=== PATIENT | female | born 1975 | race Caucasian/White ===

== ENCOUNTER 2017-01-10 05:50 | Inpatient (IN) | payer MEDICAID ==
[~2017-01-10] VITALS: Ht 152.4 cm; Wt 75.7 kg
[2017-01-10] VITALS (7 sets, daily range): BP systolic 120–131; BP diastolic 60–71; PULSE 61–90; RESP 18; Ht 152.4 cm; Wt 75.7 kg
[2017-01-10 06:22] LABS: ADD SCAN DIFF NO
[2017-01-10 06:25] LABS: ABNORMAL IP MESSAGE 1; BASOPHILS % 0.4 % (0.0-2.0); EOSINOPHILS # 0.1 10^3/ul (0.0-0.5); EOSINOPHILS % 1.4 % (0.0-7.0); HEMATOCRIT 33.9 % (37.0-47.0); HEMOGLOBIN 10.1 g/dl (12.0-16.0); LYMPHOCYTES # 1.5 10^3/ul (0.8-2.9); LYMPHOCYTES % 28.3 % (15.0-51.0); MEAN CORPUSCULAR HEMOGLOBIN 21.9 pg (29.0-33.0); MEAN CORPUSCULAR HGB CONC 29.8 g/dl (32.0-37.0); MEAN CORPUSCULAR VOLUME 73.4 fl (82.0-101.0); MONOCYTE # 0.4 10^3/ul (0.3-0.9); NEUTROPHIL # 3.2 10^3/ul (1.6-7.5); NEUTROPHILS % 61.9 % (39.0-77.0); PLATELET COUNT 107 10^3/UL (140-415); RED BLOOD COUNT 4.62 10^6/ul (4.20-5.40); RED CELL DISTRIBUTION WIDTH 16.7 % (11.5-14.5); WHITE BLOOD COUNT 5.2 10^3/ul (4.8-10.8)
[2017-01-10] MEDS ORDERED: LACTATED RINGER'S 1,000 ML IV SCH (06:30)
[2017-01-10] MEDS ORDERED: MISOPROSTOL 200 MCG TAB PR PRN ×2 (06:30→09:00)
[2017-01-10] MEDS ORDERED: CARBOPROST 250 MCG INJ IM PRN ×2 (06:30→09:00)
[2017-01-10] MEDS ORDERED: METHYLERGONOVINE 0.2 MG INJ IM PRN ×2 (06:30→09:00)
[2017-01-10] MEDS ORDERED: OXYTOCIN 30 UNITS/LR 500 ML IV PRN ×2 (06:30→09:00)
[2017-01-10] MEDS ORDERED: CEFAZOLIN 2 GM/50 ML (PMX) 50 ML IV SCH (06:30)
[2017-01-10 06:50] LABS: INR 0.88; PROTIME 11.9 Sec (12.2-14.2); PT RATIO 0.9
[2017-01-10 06:51] LABS: PARTIAL THROMBOPLASTIN TIME 26.7 Sec (25.0-35.0)
[2017-01-10] MEDS ORDERED: LACTATED RINGER'S 1,000 ML IV ONE (07:03)
--- NOTE | 2017-01-10 07:21 | HP ---
Date/Time of Note Date/Time of Note DATE: 01/10/17 TIME: 07:14 OB - History Hx of Present Chief Complaint: elective repeat CD with Btl 3 previous cd with history of blood transfusion Estimated Due Date: Jan 17, 2017 : 4 Para: 3 Care: Good Care Ultrasounds: Normal mid trimester US Other Concerns: anemai Past Family/Social History * Past Medical, Surgical, Family and Obstetric Histories reviewed from chart. Rubella: immune GBS Status: Unknown HBsAG: Negative OB Admission Exam Vital Signs Vital Signs Vital Signs Date Time Temp Pulse Resp B/P Pulse Ox O2 Delivery O2 Flow Rate FiO2 01/10/17 06:25 98.6 90 131/71 Room Air Physical Exam HEENT: WNL Heart: Rhythm Normal Lungs: Clear Abdomen: WNL Extremities: Normal Reflexes: Normal Cervical Dilatation: None Heart Rate: 130's Accelerations: Accelerations Present Contractions on Admission: None Last 72 hours Lab Results CBC & BMP 01/10/17 06:10 OB Assessment/Plan Reason for admission: section Plan: Section RADHA ROLON MD Jan 10, 2017 07:20
[2017-01-10] MEDS ORDERED: FAMOTIDINE 20 MG INJ IV ONE (07:30)
[2017-01-10] MEDS ORDERED: METOCLOPRAMIDE 10 MG INJ IV ONE (07:30)
[2017-01-10] MEDS ORDERED: CITRIC ACID/SODIUM CITRATE 15 ML CUP PO ONE (07:30)
[2017-01-10] MEDS ORDERED: morphine SULFATE/PF (10 MG/10 ML) INJ ONE (07:35)
[2017-01-10] MEDS ORDERED: FENTAnyl 50 MCG/ML VIAL ONE (07:35)
[2017-01-10] MEDS ORDERED: ONDANSETRON 4 MG INJ ONE (08:18)
[2017-01-10] MEDS ORDERED: FENTAnyl 50 MCG/ML VIAL IV PRN (08:30)
[2017-01-10] MEDS ORDERED: DIPHENHYDRAMINE 50 MG INJ IV PRN ×2 (08:30→09:30)
[2017-01-10] MEDS ORDERED: KETOROLAC 30 MG INJ IV PRN ×2 (08:30→09:30)
[2017-01-10] MEDS ORDERED: HYDROmorphONE (0.2 MG/ML) 10ML SYG IV PRN (08:30)
[2017-01-10] MEDS ORDERED: ONDANSETRON 4 MG INJ IV PRN ×2 (08:30→09:30)
[2017-01-10] MEDS ORDERED: PROCHLORPERAZINE 10 MG INJ IV PRN ×2 (08:30→09:30)
[2017-01-10] MEDS ORDERED: MEPERIDINE 25 MG INJ IV PRN (08:30)
[2017-01-10] MEDS ORDERED: OXYTOCIN 30 UNITS/LR 500 ML IV ONE (08:35)
[2017-01-10] MEDS ORDERED: OXYCODONE/ACETAMINOPHEN (5/325) TAB PO PRN ×2 (09:00)
[2017-01-10] MEDS ORDERED: LANOLIN 7 GM TUBE TOP PRN (09:00)
[2017-01-10] MEDS ORDERED: HYDROmorphONE 1 MG/ML SYG IV PRN ×2 (09:30)
[2017-01-10] MEDS ORDERED: NALOXONE (0.4 MG/ML) INJ IV PRN (09:30)
[2017-01-10] MEDS ORDERED: ZOLPIDEM 5 MG TAB PO PRN (09:30)
--- NOTE | 2017-01-10 10:58 | OPR ---
Operative Report Planned Procedure Free Text/Dictation DATE OF OPERATION: 01/10/2017 PREOPERATIVE DIAGNOSIS: Intrauterine at 39 weeks gestational age, previous delivery x3, multiparous, desires elective repeat delivery with bilateral tubal sterilization. POSTOPERATIVE DIAGNOSIS: Intrauterine at 39 weeks gestational age, previous delivery x3, multiparous, desires elective repeat delivery with bilateral tubal sterilization. OPERATION PERFORMED: Repeat low transverse delivery with bilateral tubal ligation, modified More method with omentectomy. SURGEON: Reinaldo Rolon MD. SALES PROGRAM MANAGER: Dr. Adames ANESTHESIA: Spinal. COMPLICATIONS OF PROCEDURE: None. ESTIMATED BLOOD LOSS: 500 mL. FINDINGS: A viable male, 8 and 9 respectively at 1 and 5 minutes. Weight 7lbs 1 oz . Pathology: portion of right and left fallopian tube. DESCRIPTION OF PROCEDURE: After explaining the risks, benefits and alternatives , the patient and consent signed in chart, the patient was taken to the operating room where spinal anesthesia was found to be adequate. She was then prepared and draped in normal sterile fashion in dorsal supine position with a leftward tilt. A Pfannenstiel skin incision was then made with a scalpel and carried to the underlying layer of fascia. The fascia was incised in the midline and incision was extended laterally with Potter scissors. The superior aspect of the fascial incision was grasped with curved clamps, elevated and the underlying rectus muscles dissected off bluntly. Attention was then turned to the inferior aspect of the incision, which in similar fashion was grasped, tented up with curved clamps and the rectus muscles dissected off bluntly. The rectus muscles were then in midline, peritoneum identified, tented up with Metzenbaum scissors. The peritoneal incision was extended superiorly, inferiorly with good visualization of bladder. . At this point, the bladder blade was then inserted and the vesicouterine peritoneum identified, grasped with pickups and entered sharply with Metzenbaum scissors. This incision was extended laterally and the bladder flap created digitally. The bladder blade was then reinserted and was incised in transverse fashion with a scalpel. The uterine incision was extended laterally. The bladder blade was removed and the infant's head delivered atraumatically. The nose and mouth were suctioned and cord clamped and cut. The was handed off to awaiting jewelry setter. The placenta was then removed. The uterus was exteriorized and cleared of all clots and debris. The uterine incision was repaired with 1-0 chromic in a running locked fashion. A second layer of same suture was used for imbrication obtaining excellent hemostasis. At this point, a Eva clamp was used to grasp the left tube approximately 4 cm from the cornual region. A 3 cm segment of tube was ligated with a free tie of plain gut and excised. Good hemostasis was noted. Similarly, the right fallopian tube was excised. The uterus was returned to the abdomen. The gutters were cleared of all clots. Good hemostasis was assured from the tubal ligation site. The peritoneum was reapproximated with 2-0 plain gut in interrupted fashion. The fascia was reapproximated with 0 Vicryl in a running fashion. The subcutaneous tissue was reapproximated with 2-0 plain gut in a running fashion. The skin was closed with xiomara. The patient tolerated procedure well. Sponge, lap and needle counts correct x2. The patient was taken to recovery room in stable condition. Procedure date Jan 10, 2017 Procedure Description Under satisfactory [] anesthesia, the patient was prepped and draped and placed in a supine position, tilted to the left. Pfannenstiel incision was made, carried through the subcutaneous tissue. Bleeders brought under control with electrocautery. Fascia incised to the length of the incision. Rectus muscles from the fascia, divided midline. Peritoneum exposed, entered through a transverse incision. Exploration of abdomen revealed gravid uterus. Bladder flap was developed. Transverse incision was made in the lower segment of the uterus. Amniotic sac ruptured. [] amniotic fluid noted. [] Nasal oropharyngeal suction was performed. The baby was handed to the team for immediate attention. The placenta was delivered manually intact. Uterine cavity was cleaned with wet sponge and drainage established. Uterus closed in 2 layers using [] in continuous fashion. Peritoneal cavity irrigated with warm saline. Sponge, needle and instrument count reported to be correct. Abdominal peritoneum closed with [] continuously. Rectus muscle approximated with []. Fascia closed with [], and skin closed with xiomara. Estimated blood loss []mL. Urine bag contained []mL of urine Post-Procedure Findings: Live Baby [], Apgars [] and [], weight [], position [], [] presentation []cord. Physician Certification I, the undersigned physician, hereby certify that I have discussed the procedure described in this consent form with this patient (or the patient's legal field support representative), including: * The risk and benefits of the procedure; * Any adverse reactions that may reasonably be expected to occur; * Any alternative efficacious methods of treatment which may be medically viable ; * The potential problems that may occur during recuperation; * Potential for blood transfusion and associated risks/benefits; and * Any research or economic interest I may have regarding this treatment. I further certify that the patient/legally responsible person was encouraged to ask question and that all questions were answered. REINALDO ROLON MD Jan 10, 2017 10:58
[2017-01-10] MEDS: OXYTOCIN 30 UNITS/LR 500 ML IV SCH ×2 (11:34→11:54)
[2017-01-10] MEDS: IBUPROFEN 600 MG TAB PO SCH ×3 (12:00→23:54)
[2017-01-10] MEDS: LACTATED RINGER'S 1,000 ML IV SCH ×2 (15:34→23:54)
[2017-01-10] MEDS: CEFAZOLIN 2 GM/50 ML (PMX) 50 ML IVPB SCH ×2 (17:42→17:47)
[2017-01-10] MEDS: SENNA/DOCUSATE NA (8.6MG/50MG) TAB PO SCH (23:53)
[2017-01-11] VITALS: BP 123/62; PULSE 75; RESP 19
[2017-01-11] MEDS: CEFAZOLIN 2 GM/50 ML (PMX) 50 ML IVPB SCH (00:59)
[2017-01-11 04:00] VITALS: BP 114/60; PULSE 79; RESP 18
[2017-01-11] MEDS: IBUPROFEN 600 MG TAB PO SCH ×4 (05:35→23:51)
[2017-01-11 07:40] VITALS: BP 113/59; PULSE 72; RESP 18
[2017-01-11] MEDS: LACTATED RINGER'S 1,000 ML IV SCH (07:58)
[2017-01-11 08:10] LABS: ABNORMAL IP MESSAGE 1; BASOPHILS % 0.2 % (0.0-2.0); EOSINOPHILS % 0.2 % (0.0-7.0); HEMATOCRIT 26.5 % (37.0-47.0); HEMOGLOBIN 7.9 g/dl (12.0-16.0); LYMPHOCYTES # 1.1 10^3/ul (0.8-2.9); MEAN CORPUSCULAR HEMOGLOBIN 21.8 pg (29.0-33.0); MEAN CORPUSCULAR HGB CONC 29.8 g/dl (32.0-37.0); MEAN CORPUSCULAR VOLUME 73.2 fl (82.0-101.0); MONOCYTE # 0.5 10^3/ul (0.3-0.9); MONOCYTES % 4.9 % (0.0-11.0); NEUTROPHIL # 7.5 10^3/ul (1.6-7.5); NEUTROPHILS % 81.8 % (39.0-77.0); PLATELET COUNT 91 10^3/UL (140-415); RED BLOOD COUNT 3.62 10^6/ul (4.20-5.40); RED CELL DISTRIBUTION WIDTH 16.5 % (11.5-14.5); WHITE BLOOD COUNT 9.2 10^3/ul (4.8-10.8)
[2017-01-11 08:15] LABS: ADD SCAN DIFF NO
[2017-01-11] MEDS: SENNA/DOCUSATE NA (8.6MG/50MG) TAB PO SCH ×2 (08:58→20:33)
--- NOTE | 2017-01-11 10:11 | PN ---
Date/Time of Note Date/Time of Note DATE: 01/11/17 TIME: 10:10 OB Subjective Subjective Subjective January 11, 2017 Hospital visit, day 2 Post day 2 Patient is doing well, Ambulatory She is afebrile Abdomen is soft , Fundus is firm Moderate amount of lochia Breasts are soft, Nipples are intact No calf tenderness. Incision is healing Laboratory Tests Test 01/11/17 07:11 White Blood Count 9.210^3/ul Red Blood Count 3.6210^6/ul Hemoglobin 7.9g/dl Hematocrit 26.5% Mean Corpuscular Volume 73.2fl Mean Corpuscular Hemoglobin 21.8pg Mean Corpuscular Hemoglobin Concent 29.8g/dl Red Cell Distribution Width 16.5% Platelet Count 9110^3/UL Mean Platelet Volume fl Neutrophils % 81.8% Lymphocytes % 12.0% Monocytes % 4.9% Eosinophils % 0.2% Basophils % 0.2% Nucleated Red Blood Cells % 0.0/100WBC Neutrophils # 7.510^3/ul Lymphocytes # 1.110^3/ul Monocytes # 0.510^3/ul Eosinophils # 0.010^3/ul Basophils # 0.010^3/ul Nucleated Red Blood Cells # 0.010^3/ul Current Medications Medications (Trade) Dose Ordered Sig/Wil Route PRN Reason Start Time Stop Time Status Last Admin Dose Admin Cefazolin Sodium/ Dextrose 50 ml @ 100 mls/hr ONCE IV 01/10/17 06:30 01/10/17 09:06 DC Oxytocin/Lactated Ringer's 500 ml @ 0 mls/hr ONCE PRN IV For Hemorrhage Management 01/10/17 06:30 01/10/17 12:54 DC 01/10/17 09:08 Methylergonovine Maleate (Methergine) 0.2 mg ONCE PRN IM VAGINAL BLEEDING 01/10/17 06:30 01/10/17 09:07 DC Carboprost Tromethamine (Hemabate) 250 mcg ONCE PRN IM VAGINAL BLEEDING 01/10/17 06:30 01/10/17 09:05 DC Misoprostol 1000 mcg 1,000 mcg ONCE PRN DC VAGINAL BLEEDING 01/10/17 06:30 01/10/17 09:07 DC Lactated Ringer's 1,000 ml @ 125 mls/hr Q8H IV 01/10/17 06:30 01/10/17 12:54 DC 01/10/17 06:22 Lactated Ringer's (Lr) 1,000 ml @ 1,000 mls/hr Q1H ONCE IV 01/10/17 07:03 01/10/17 08:02 DC 01/10/17 07:39 Citric Acid/ Sodium Citrate (Bicitra) 30 ml PRE-PROCEDURE ONCE PO 01/10/17 07:30 01/10/17 07:31 DC 01/10/17 07:37 Famotidine (Pepcid Iv) 20 mg pre-procedure ONCE IV 01/10/17 07:30 01/10/17 07:31 DC 01/10/17 07:37 Metoclopramide HCl 10 mg 10 mg ONCE ONCE IV 01/10/17 07:30 01/10/17 07:31 DC 01/10/17 07:38 Oxytocin/Lactated Ringer's 500 ml @ 125 mls/hr ONCE IV 01/10/17 07:30 01/10/17 12:54 DC 01/10/17 11:54 Fentanyl (Sublimaze) 100 mcg STK-MED ONCE .ROUTE 01/10/17 07:35 01/10/17 07:36 DC Morphine Sulfate (Duramorph) 10 mg STK-MED ONCE .ROUTE 01/10/17 07:35 01/10/17 07:36 DC Hydromorphone HCl (Dilaudid (Rec)) 0.4 mg PACU ORDER PRN IV PAIN 01/10/17 08:30 01/10/17 12:54 DC Fentanyl (Sublimaze) 25 mcg PACU ORDER PRN IV PAIN 01/10/17 08:30 01/10/17 12:54 DC Ketorolac Tromethamine (Toradol) 30 mg PACU ORDER PRN IV PAIN 01/10/17 08:30 01/10/17 12:55 DC Ondansetron HCl (Zofran Inj) 4 mg PACU ORDER PRN IV NAUSEA AND/OR VOMITING 01/10/17 08:30 01/10/17 12:55 DC Prochlorperazine (Compazine Inj) 5 mg PACU ORDER PRN IV NAUSEA AND/OR VOMITING 01/10/17 08:30 01/10/17 12:55 DC Meperidine HCl (Demerol) 25 mg PACU ORDER PRN IV POST-OP RIGORS 01/10/17 08:30 01/10/17 12:55 DC Diphenhydramine HCl (Benadryl) 25 mg PACU ORDER PRN IV PRURITUS 01/10/17 08:30 01/10/17 12:55 DC Ondansetron HCl 4 mg 4 mg STK-MED ONCE .ROUTE 01/10/17 08:18 01/10/17 08:19 DC Oxytocin/Lactated Ringer's 500 ml @ ud STK-MED ONCE IV 01/10/17 08:35 01/10/17 08:36 DC Lactated Ringer's 1,000 ml @ 125 mls/hr Q8H IV 01/10/17 08:46 01/11/17 07:58 DC 01/10/17 23:54 Cefazolin Sodium/ Dextrose (Ancef 2 Gm/50 ml (Pmx)) 50 ml @ 100 mls/hr Q8H IVPB 01/10/17 09:00 01/11/17 01:29 DC 01/11/17 00:59 Oxycodone/ Acetaminophen (Percocet (5/ 325)) 1 tab Q4H PRN PO PAIN LEVEL 4-6 01/10/17 09:00 Oxycodone/ Acetaminophen (Percocet (5/ 325)) 2 tab Q4H PRN PO PAIN LEVEL 7-10 01/10/17 09:00 Ibuprofen (Motrin) 600 mg Q6 PO 01/10/17 12:00 Simethicone (Mylicon) 160 mg Q8H PRN PO DISTENSION/GAS/BLOATING 01/10/17 09:00 Senna/Docusate Sodium (Senokot-S) 1 tab BID PO 01/10/17 09:00 01/11/17 08:58 Lanolin 1 applic 1 applic BEDSIDE MEDICATION PRN TOP BEDSIDE FOR SHANIA TO NIPPLES 01/10/17 09:00 Oxytocin/Lactated Ringer's 500 ml @ 0 mls/hr ONCE PRN IV For Hemorrhage Management 01/10/17 09:00 01/10/17 12:55 DC Methylergonovine Maleate (Methergine) 0.2 mg ONCE PRN IM VAGINAL BLEEDING 01/10/17 09:00 Carboprost Tromethamine (Hemabate) 250 mcg ONCE PRN IM VAGINAL BLEEDING 01/10/17 09:00 01/10/17 12:55 DC Misoprostol (Cytotec) 1,000 mcg ONCE PRN DC VAGINAL BLEEDING 01/10/17 09:00 Naloxone HCl (Narcan) 0.1 mg Q2M PRN IV FOR RESP RATE 8 OR LESS 01/10/17 09:30 01/11/17 08:00 DC Ketorolac Tromethamine (Toradol) 30 mg Q6H PRN IV PAIN 01/10/17 09:30 01/11/17 08:00 DC 01/11/17 05:43 Hydromorphone HCl (Dilaudid) 0.2 mg Q3H PRN IV PAIN LEVEL 1-5 01/10/17 09:30 01/11/17 08:00 DC Hydromorphone HCl (Dilaudid) 0.4 mg Q3H PRN IV PAIN LEVEL 6-10 01/10/17 09:30 01/11/17 08:00 DC Diphenhydramine HCl (Benadryl) 25 mg Q6H PRN IV ITCHING 01/10/17 09:30 01/11/17 08:00 DC Ondansetron HCl (Zofran Inj) 4 mg Q6H PRN IV NAUSEA AND/OR VOMITING 01/10/17 09:30 01/11/17 08:00 DC Prochlorperazine (Compazine Inj) 10 mg ONCE PRN IV NAUSEA AND/OR VOMITING 01/10/17 09:30 01/11/17 08:00 DC Zolpidem Tartrate (Ambien) 5 mg HS MAY REPEAT X 1 PRN PO INSOMNIA 01/10/17 09:30 01/11/17 08:00 DC Miscellaneous Information (* Miscellaneous Pharmacy Order) Duramorph: 0.2 mg Spi... GIVEN XX 01/10/17 09:30 01/10/17 12:55 DC Breast feeding the new born. PETER DOMINIQUE MD Jan 11, 2017 10:11
[2017-01-11 16:00] VITALS: BP 115/64; PULSE 67; RESP 16
[2017-01-11 20:30] VITALS: BP 122/73; PULSE 80; RESP 20
[2017-01-11 23:45] VITALS: BP 132/72; PULSE 65; RESP 19
[2017-01-12 04:15] VITALS: BP 134/66; PULSE 69; RESP 20
[2017-01-12] MEDS: IBUPROFEN 600 MG TAB PO SCH ×3 (05:38→18:14)
[2017-01-12 08:20] VITALS: BP 117/59; PULSE 64; RESP 17
[2017-01-12] MEDS: SENNA/DOCUSATE NA (8.6MG/50MG) TAB PO SCH ×2 (09:22→21:00)
--- NOTE | 2017-01-12 14:03 | QN ---
Documentation Comment POD#2 is stable afebrile tolerates diet No VB +Flatus +voids VS stable Gen NAD Abd soft NT ND incsion intact Genitalia No blood at perinium --->discharge plan tomorrow --->ambulation LITO ESCOTO M.D. Jan 12, 2017 14:02
[2017-01-12 16:15] VITALS: BP 132/71; PULSE 85; RESP 16
[2017-01-12 19:48] VITALS: BP 128/70; PULSE 77; RESP 20
[2017-01-13] MEDS: IBUPROFEN 600 MG TAB PO SCH ×3 (00:25→12:39)
[2017-01-13 04:00] VITALS: BP 137/80; PULSE 65; RESP 20
[2017-01-13 08:30] VITALS: BP 125/70; PULSE 65; RESP 17
[2017-01-13] MEDS: SENNA/DOCUSATE NA (8.6MG/50MG) TAB PO SCH (08:46)
--- NOTE | 2017-01-13 09:28 | DS ---
Date/Time of Note Date/Time of Note DATE: 01/13/17 TIME: 09:26 Obstetrical Discharge Record Final Diagnosis Final Diagnosis: Term delivered Other Final Diagnosis s/p repeat c/s and BTL. doing well. wants to go home. c/o mild abdominal pain. Vaginal Delivery Obstetrical Delivery: Bilateral Tubal Ligation Section Section: Repeat Condition on Discharge Physical Assessment Voiding: Yes Bowel Movement: Yes Breast: Soft, non-tender, Filling Fundus: Firm Abdomen and Incision: soft, appropriate tenderness, incision is clean and intact with Leslye Calf Tenderness: No Patient Condition: Good SANTANA AGUERO MD Jan 13, 2017 09:28
== END 2017-01-13 13:20 | disposition home or self-care (01) | DRG 766 ==
LOC: OBSVTOIN 05:50 → L-D 05:50 → PP1 12:29
PROVIDERS: ADMIT Obstetrics & Gynecology; ATTEND Obstetrics & Gynecology
PROC: 0UL70ZZ Occlusion of Bilateral Fallopian Tubes, Open Approach (ICD-10-PCS; 2017-01-10)
PROC: 10D00Z1 Extraction of Products of Conception, Low, Open Approach (ICD-10-PCS; principal; 2017-01-10 07:30)
DX: O34.211 Maternal care for low transverse scar from previous cesarean delivery (principal); O24.429 Gestational diabetes mellitus in childbirth, unspecified control; Z30.2 Encounter for sterilization; Z3A.39 39 weeks gestation of pregnancy; Z37.0 Single live birth
CPT/HCPCS: 82947; 85025; 85610; 85730; 86592; 86850; 86900; 86901; 86920; 87340; 88302; 94760; J0690; J1885; J2274; J2405; J2590; J2765; J3010; J7120